=== PATIENT | female | born 1985 | race Caucasian/White ===

== ENCOUNTER 2024-11-19 14:12 | Emergency (ER) | payer BC ==
[~2024-11-19] VITALS: Ht 165.1 cm; Wt 63.5 kg
[2024-11-19 14:59] VITALS: TEMP 98.4
[2024-11-19] MEDS ORDERED: SODIUM CHLORIDE FLUSH 10 ML SYR IV PRN (15:15)
[2024-11-19 15:49] LABS: BASOPHILS # (AUTO) 0.1 (0.0-0.1); BASOPHILS % 0.7 % (0.0-1.0); EOSINOPHILS # (AUTO) 0.1 (0.0-0.4); EOSINOPHILS % 1.2 % (0.0-6.0); HEMATOCRIT 42.1 % (34.2-44.1); HEMOGLOBIN 14.1 g/dL (12.0-16.0); LYMPHOCYTES # (AUTO) 1.9 (1.0-3.2); LYMPHOCYTES % 28.4 % (18.0-39.1); MEAN CORPUSCULAR HEMOGLOBIN 30.7 pg (28-32); MEAN CORPUSCULAR HGB CONC 33.5 g/dL (31-35); MEAN CORPUSCULAR VOLUME 91.5 fL (81-99); MONOCYTES # (AUTO) 0.5 (0.2-0.8); MONOCYTES % 7.9 % (4.4-11.3); NEUTROPHILS # (AUTO) 4.1 (2.1-6.9); NEUTROPHILS % 61.7 % (38.7-80.0); PLATELET COUNT 322 x10e3/uL (140-360); RED CELL DISTRIBUTION WIDTH 12.1 % (11.7-14.4); WHITE BLOOD COUNT 6.69 x10e3/uL (4.8-10.8)
[2024-11-19 16:11] LABS: INR 0.95; PROTHROMBIN TIME 13.3 seconds (11.9-14.5)
[2024-11-19 16:12] LABS: PARTIAL THROMBOPLASTIN TIME 27.8 seconds (23.8-35.5)
[2024-11-19 16:20] LABS: ALBUMIN 4.6 g/dL (3.5-5.0); ALBUMIN/GLOBULIN RATIO 1.4 (0.8-2.0); ANION GAP 13.9 mmol/L (8-16); BILIRUBIN,TOTAL 0.5 mg/dL (0.2-1.2); CALCIUM 9.1 mg/dL (8.4-10.2); POTASSIUM 3.9 mmol/L (3.5-5.1); TOTAL PROTEIN 7.8 g/dL (6.5-8.1)
[2024-11-19 16:26] LABS: TROPONIN I 0.002 ng/mL (0-0.300)
[2024-11-19] MEDS: ALTEPLASE 50 MG/VIAL (29 MILLION IU) IV ONE ×2 (16:53)
[2024-11-19] MEDS: CLOPIDOGREL BISULFATE 75 MG TAB PO ONE (16:57)
[2024-11-19] MEDS: ASPIRIN 81 MG CHEW TAB PO ONE (16:57)
[2024-11-19] MEDS ORDERED: CLOPIDOGREL BISULFATE 300 MG TAB-DO NOT STOCK PO ONE (17:00)
[2024-11-19 17:45] VITALS: PULSE 92; RESP 15
[2024-11-19 19:05] VITALS: BP 111/82; PULSE 95; RESP 18; TEMP 97.9; O2SAT 99
== END 2024-11-19 19:06 | disposition short-term general hospital (02) ==
LOC: ER 15:07
DX: R20.0 Anesthesia of skin (principal); I63.9 Cerebral infarction, unspecified; R20.2 Paresthesia of skin; F41.9 Anxiety disorder, unspecified; F32.A Depression, unspecified
CPT/HCPCS: 36415; 70450; 71045; 80053; 83880; 84484; 85025; 85610; 85730; 93005; 94760; 99284